=== PATIENT | male | born 1990 | race Two or more races ===

== ENCOUNTER 2021-01-11 17:12 | Emergency (ER) | payer BC, OTHER ==
[~2021-01-11] VITALS: Ht 177.8 cm; Wt 104.3 kg
[2021-01-11 17:16] VITALS: BP 125/49
[2021-01-11] MEDS ORDERED: HYDROcodone-ACET 10/325MG TAB PO ONE (21:15)
[2021-01-11] MEDS ORDERED: ONDANSETRON ODT 4 MG TAB PO ONE (21:15)
== END 2021-01-11 21:57 | disposition home or self-care (01) ==
LOC: ER 17:12
DX: S93.402A Sprain of unspecified ligament of left ankle, initial encounter (principal); V29.9XXA Motorcycle rider (driver) (passenger) injured in unspecified traffic accident, initial encounter; Y93.89 Activity, other specified; Y92.89 Other specified places as the place of occurrence of the external cause; Y99.8 Other external cause status
CPT/HCPCS: 73610; 73630; 99284; Q0162